=== PATIENT | male | born 1965 | race Caucasian/White ===

== ENCOUNTER 2016-12-01 09:44 | Day surgery (SDC) | payer OTHER ==
[2016-12-01] VITALS (7 sets, daily range): BP systolic 111–167; BP diastolic 60–106; PULSE 56–70; RESP 16–20; TEMP 98.8–99; O2SAT 92–97
[~2016-12-01] VITALS: Ht 188 cm; Wt 104.5 kg
[~2016-12-01 09:44] MED LIST: LISI40TA
[2016-12-01] MEDS ORDERED: METO50TA11 PO (10:09)
[2016-12-01] MEDS ORDERED: LOSA50TA PO (10:09)
[2016-12-01 10:59] LABS: INTERNATIONAL NORMALIZED RATIO 1.1 RATIO; PROTHROMBIN TIME - PATIENT 11.8 SEC (9.8-11.6)
[2016-12-01] MEDS ORDERED: SODIUM CHLOR 0.9% 1000 ML IV SCH (11:00)
[2016-12-01] MEDS ORDERED: LIDOCAINE 1%/EPINEPHrine 1:100,000 SOLN 20 ML VIAL ONE (13:01)
[2016-12-01] MEDS ORDERED: fentaNYL CITRATE 250 MCG/5 ML AMP ONE (13:04)
[2016-12-01] MEDS ORDERED: MIDAZOLAM HCL 5 MG/5 ML VIAL ONE (13:04)
--- NOTE | 2016-12-01 14:38 | RADRPT ---
EXAM DATE/TIME: 12/01/2016 13:19 [place] COMPARISON: No previous studies available for comparison. INDICATIONS : Abnormal liver function tests. SEDATION TIME: 30 minutes BIOPSY SITE: Right liver MEDICATION(S): 1.) 3 mg midazolam (Versed) IV 2.) 150 mcg fentanyl (Sublimaze) IV DEVICE(S): 1.) 18 gauge Temno core biopsy needle MEDICAL HISTORY : Diverticullitis. SURGICAL HISTORY : None. ENCOUNTER: Initial ACUITY: 1 day PAIN SCORE: 0/10 LOCATION: Bilateral abdomen A total of one core specimen(s) were obtained and sent to the laboratory for pathologic evaluation. PROCEDURE: 1. CT guided liver biopsy. 2. Conscious sedation with continuous EKG and oximetry monitoring. 3. EKG and oximetry remained stable throughout the procedure. Prior to the procedure informed consent was obtained. Any appropriate prior imaging studies were rev iewed. Using automated exposure control and adjustment of the mA and/or kV according to patient size, radiat ion dose was kept as low as reasonably achievable to obtain optimal diagnostic quality images. DICOM format image data is available electronically for review and comparison. The site was prepped in a sterile fashion. Full sterile technique was used, including cap, mask, jhon rile gloves and gown and a large sterile sheet. Hand hygiene and 2% chlorhexidine and/or betadine/al cohol prep was utilized per protocol for cutaneous antisepsis. The skin and subcutaneous tissues wer e infiltrated with local anesthetic solution. With CT guidance the previously identified target was localized. Biopsy was performed using the presc ribed needle as above. Adequate hemostasis was obtained with compression at the puncture site. Follow-up CT scan reveals no hemorrhage. The patient tolerated the procedure well and there were no complications. The patient was returned to the Radiology Outpatient Unit in stable condition. CONCLUSION: Uncomplicated CT guided biopsy. Chip Castro MD on December 01, 2016 at 14:36 Board Certified Radiologist. This report was verified electronically.
== END 2016-12-01 17:30 | disposition home or self-care (01) ==
LOC: HRAD 09:44 → HRIP 09:45 → HRAD 17:30
DX: E83.19 Other disorders of iron metabolism (principal); K76.0 Fatty (change of) liver, not elsewhere classified; I10 Essential (primary) hypertension; K57.92 Diverticulitis of intestine, part unspecified, without perforation or abscess without bleeding
CPT/HCPCS: 47000; 77012; 85610; 88307; 88313; J2250; J3010; J7030